=== PATIENT | male | born 1965 | race Caucasian/White ===

== ENCOUNTER → 2024-02-15 14:28 | Outpatient (REF) | payer BC, SELFPAY | LOC: RAD 14:28 | PROVIDERS: ATTENDING PHYSICIAN Internal Medicine | DX: R22.40 Localized swelling, mass and lump, unspecified lower limb (principal); M79.662 Pain in left lower leg | CPT/HCPCS: 93971 ==

== ENCOUNTER → 2024-10-18 12:24 | Outpatient (REF) | payer BC, SELFPAY | LOC: HWRAD 12:24 | PROVIDERS: ATTENDING PHYSICIAN Internal Medicine | DX: R14.0 Abdominal distension (gaseous) (principal) | CPT/HCPCS: 76700 ==

== ENCOUNTER → 2025-02-06 07:52 | Outpatient (REF) | payer BC, SELFPAY | LOC: RAD 07:52 | PROVIDERS: ATTENDING PHYSICIAN Surgery Vascular Surgery; FAMILY PHYSICIAN Internal Medicine | DX: I71.43 Infrarenal abdominal aortic aneurysm, without rupture (principal) | CPT/HCPCS: 74174; Q9967 ==